=== PATIENT | female | born 2000 | race African-American/Black ===

== ENCOUNTER 2020-10-29 11:14 | Emergency (ER) | payer OTHER ==
[~2020-10-29] VITALS: Ht 157.5 cm; Wt 73.5 kg
[2020-10-29] MEDS ORDERED: KETOROLAC TROMETHAMINE 10 MG TAB PO ONE (11:45)
[2020-10-29 12:14] LABS: BASO % 0.5 % (0.0-1.0); EOS # 0.1 10^3/uL (0.0-0.5); EOS % 0.9 % (0.0-3.0); HEMATOCRIT 43.8 % (36.0-47.0); HEMOGLOBIN 13.9 g/dl (12.0-15.5); LYMPH # 1.6 10^3/uL (1.5-5.0); LYMPH % 27.1 % (24.0-44.0); MEAN CORPUSCULAR HEMOGLOBIN 27.5 pg (27.0-33.0); MEAN CORPUSCULAR HGB CONC 31.7 g/dl (32.0-36.5); MEAN CORPUSCULAR VOLUME 86.6 fl (80.0-96.0); MONO # 0.5 10^3/uL (0.0-0.8); MONO % 8.7 % (0.0-5.0); NEUTROPHILS # 3.6 10^3/uL (1.5-8.5); NEUTROPHILS % 62.5 % (36.0-66.0); PLATELET COUNT, AUTOMATED 298 10^3/uL (150-450); RED BLOOD COUNT 5.06 10^6/uL (4.00-5.40); WHITE BLOOD COUNT 5.7 10^3/uL (4.0-10.0)
[2020-10-29 12:48] LABS: ALBUMIN 3.8 GM/DL (3.2-5.2); ALT/SGPT 31 U/L (12-78); BILIRUBIN,TOTAL 0.8 MG/DL (0.2-1.0); BLOOD UREA NITROGEN 10 MG/DL (7-18); CALCIUM LEVEL 9.6 MG/DL (8.5-10.1); CARBON DIOXIDE LEVEL 30 MEQ/L (21-32); CHLORIDE LEVEL 108 MEQ/L (98-107); CREATININE FOR GFR 0.96 MG/DL (0.55-1.30); GLUCOSE, FASTING 86 MG/DL (70-100); POTASSIUM SERUM 4.2 MEQ/L (3.5-5.1); SODIUM LEVEL 141 MEQ/L (136-145); TOTAL PROTEIN 7.8 GM/DL (6.4-8.2)
--- NOTE | 2020-10-29 13:01 | REP ---
INDICATION: heavy bleeding/cramping. COMPARISON: None. TECHNIQUE: Transabdominal scanning performed. FINDINGS: Uterine dimensions are 8.4 x 4.0 x 5.4 cm. Endometrial echo is 3 mm in AP dimension and centrally placed. The bladder measures 2.7 x 5.0 x 8.7 cm. The right ovary has dimensions of 2.7 x 1.6 x 2.7 cm. It's Doppler flow is normal with a resistive index of 0.6. The left ovary dimensions are 3.4 x 1.5 x 2.2 cm. It's Doppler flow was normal with resistive index of 0.61. There is no adnexal mass identified. No free fluid is seen in the cul-de-sac. IMPRESSION: Negative pelvic ultrasound. <Electronically signed by Abdiel Nam > 10/29/20 [id number]
[2020-10-29 14:43] VITALS: BP 118/80
== END 2020-10-29 14:00 | disposition home or self-care (01) ==
LOC: M ED 11:14
DX: N93.8 Other specified abnormal uterine and vaginal bleeding (principal)

== ENCOUNTER 2021-03-13 15:45 | Emergency (ER) | payer OTHER ==
[~2021-03-13] VITALS: Ht 157.5 cm; Wt 70.5 kg
[2021-03-13 18:56] VITALS: BP 113/71
== END 2021-03-13 18:58 | disposition home or self-care (01) ==
LOC: M ED 15:45
DX: N92.6 Irregular menstruation, unspecified (principal); Z86.19 Personal history of other infectious and parasitic diseases

== ENCOUNTER 2021-05-14 17:46 | Emergency (ER) | payer OTHER ==
[~2021-05-14] VITALS: Ht 157.5 cm; Wt 66.8 kg
[2021-05-14 17:46] VITALS: BP 122/77
[2021-05-14] MEDS ORDERED: PRENTAB53 PO (17:52)
[2021-05-14] MEDS ORDERED: ONDANSETRON 4 MG ORAL DISINTEGRATING TAB PO ONE (21:30)
[2021-05-14] MEDS ORDERED: ONDA4TAB6 PO ×2 (22:08→22:15)
== END 2021-05-14 22:20 | disposition home or self-care (01) ==
LOC: M ED 17:46
DX: O26.891 Other specified pregnancy related conditions, first trimester (principal)
CPT/HCPCS: 80047; 81001; 84702; 99282; Q0162

== ENCOUNTER 2021-06-20 18:41 | Emergency (ER) | payer OTHER ==
[~2021-06-20] VITALS: Ht 157.5 cm; Wt 71.5 kg
[~2021-06-20 18:41] MED LIST: ONDA4TAB6 PO; PRENTAB53 PO
[2021-06-20 18:42] VITALS: BP_DIAS 66
[2021-06-21 00:20] LABS: BASO % 0.4 % (0.0-1.0); EOS # 0.1 10^3/uL (0.0-0.5); EOS % 1.3 % (0.0-3.0); HEMATOCRIT 37.5 % (36.0-47.0); HEMOGLOBIN 12.5 g/dl (12.0-15.5); LYMPH % 36.2 % (24.0-44.0); MEAN CORPUSCULAR HEMOGLOBIN 28.2 pg (27.0-33.0); MEAN CORPUSCULAR HGB CONC 33.3 g/dl (32.0-36.5); MEAN CORPUSCULAR VOLUME 84.5 fl (80.0-96.0); MONO # 0.7 10^3/uL (0.0-0.8); MONO % 8.5 % (2.0-8.0); NEUTROPHILS # 4.4 10^3/uL (1.5-8.5); PLATELET COUNT, AUTOMATED 219 10^3/uL (150-450); RED BLOOD COUNT 4.44 10^6/uL (4.00-5.40); WHITE BLOOD COUNT 8.4 10^3/uL (4.0-10.0)
[2021-06-21 00:37] LABS: ALBUMIN 3.2 GM/DL (3.2-5.2); BILIRUBIN,DIRECT 0.2 MG/DL (0.0-0.2); BILIRUBIN,TOTAL 0.4 MG/DL (0.2-1.0); TOTAL PROTEIN 6.7 GM/DL (6.4-8.2)
[2021-06-21 00:48] LABS: APPEARANCE, URINE CLEAR (CLEAR); BACTERIA, URINE AUTO NEGATIVE (NEGATIVE); BILIRUBIN, URINE AUTO NEGATIVE (NEGATIVE); BLOOD, URINE BLOOD NEGATIVE (NEGATIVE); COLOR, URINE YELLOW (YELLOW); GLUCOSE, URINE (UA) AUTO NEGATIVE (NEGATIVE); KETONE, URINE AUTO TRACE mg/dL (NEGATIVE); LEUKOCYTE ESTERASE, URINE AUTO 1+ (NEGATIVE); NITRITE, URINE AUTO NEGATIVE (NEGATIVE); PROTEIN, URINE AUTO NEGATIVE (NEGATIVE); RBC, URINE AUTO 2 /HPF (0-3); SPECIFIC GRAVITY URINE AUTO 1.009 (1.002-1.035); SQUAMOUS EPITHELIAL CELL UR AU 3 /HPF (0-6); UROBILINOGEN, URINE AUTO 0.2 mg/dL (0.0-2.0); WBC, URINE AUTO 2 /HPF (0-3)
[2021-06-21] MEDS ORDERED: ACETAMINOPHEN 500 MG TAB PO ONE (01:00)
[2021-06-21 01:12] VITALS: BP_SYST 116
== END 2021-06-21 01:17 | disposition home or self-care (01) ==
LOC: M ED 18:41
DX: O99.891 Other specified diseases and conditions complicating pregnancy (principal); R10.2 Pelvic and perineal pain; Z3A.14 14 weeks gestation of pregnancy